=== PATIENT | male | born 1975 | race Caucasian/White ===

== ENCOUNTER 2016-11-07 20:37 | Emergency (ER) | payer BC ==
[~2016-11-07] VITALS: Ht 188 cm; Wt 122.4 kg
[2016-11-07 20:43] VITALS: TEMP 36.9; Ht 188 cm; Wt 122.4 kg
[2016-11-07] MEDS ORDERED: KETOROLAC TROMETHAMINE 30 MG/ML VIAL IV STA (21:12)
[2016-11-07] MEDS ORDERED: SODIUM CHLORIDE 0.9% 1000ML 1,000 ML IV STA (21:12)
[2016-11-07] MEDS ORDERED: ONDANSETRON 8 MG/54 ML D5W IV STA (21:12)
[2016-11-07] MEDS ORDERED: HYDROmorphone INJ 1 MG/ML SYR IV PRN (21:15)
[2016-11-07 21:27] LABS: BASO % 0.2 %; BASO ABS # 0.03 K/uL (0-0.2); COMPLETE YES; EOS % 0.3 %; HEMATOCRIT 42.4 % (42-52); IG% 0.4 %; LYMPH % 22.3 %; LYMPH ABS # 2.85 K/uL (1.2-3.4); MEAN CELL VOLUME 80.3 fL (80-100); MEAN CORPUSCULAR HEMOGLOBIN 29.2 pg (25-34); MEAN CORPUSCULAR HGB CONC 36.3 g/dl (32-36); MEAN PLATELET VOLUME 9.3 fL (7.4-10.4); MONO % 5.8 %; PLATELET COUNT 217 K/uL (130-400); RED BLOOD COUNT 5.28 M/uL (4.7-6.1)
[2016-11-07 21:47] LABS: ALT/SGPT 36 U/L (12-78); BLOOD UREA NITROGEN 14 mg/dl (7-18); BUN/CREATININE RATIO 11.8 (10-20); CALCIUM 8.8 mg/dl (8.5-10.1); CARBON DIOXIDE 27 mmol/L (21-32); CHLORIDE 105 mmol/L (98-107); GLUCOSE 112 mg/dl (70-99); POTASSIUM 3.8 mmol/L (3.5-5.1); SODIUM 141 mmol/L (136-145)
--- NOTE | 2016-11-07 21:49 | DIAGNOSTIC IMAGING REPORT ---
ABDOMEN AND PELVIS CT WITHOUT CONTRAST CT DOSE: 1936.51 mGy.cm HISTORY: Left flank pain TECHNIQUE: Multiaxial CT images of the abdomen and pelvis were performed without the use of intravenous and oral contrast according to the standard department stone protocol. COMPARISON STUDY: None. FINDINGS: There is a 3 mm stone at the left ureterovesical junction resulting in mild left hydronephrosis. No renal calculi or right-sided hydronephrosis. The lung bases are clear. The unenhanced liver, adrenal glands, pancreas, and gallbladder are unremarkable. The spleen is top normal in size. No retroperitoneal lymphadenopathy. Suboptimal evaluation for bowel pathology due to the lack of intravenous and oral contrast. However, there is no definite bowel wall thickening or obstruction. Normal appendix. Bladder is not well-distended. Colonic diverticulosis. IMPRESSION: A 3 mm obstructing stone within the left ureterovesical junction resulting in mild left hydronephrosis. Electronically signed by: Albino Bravo M.D. 11/07/2016 9:47 PM Dictated Date/Time: 11/07/2016 9:41 PM
[2016-11-07 21:50] LABS: ALKALINE PHOSPHATASE 74 U/L (45-117); AST/SGOT 21 U/L (15-37)
[2016-11-07 21:57] LABS: URINE APPEARANCE CLEAR (CLEAR); URINE BILIRUBIN NEG (NEG); URINE COLOR YELLOW; URINE NITRITE NEG (NEG); URINE SPECIFIC GRAVITY 1.025 (1.000-1.030); UROBILINOGEN NEG (NEG); ZZUR CULT IF INDIC CLEAN CATCH NO
[2016-11-07 22:10] LABS: MANUAL MICROSCOPIC REQUIRED? NO; REVIEW REQ? NO
[2016-11-07] MEDS ORDERED: HYDROmorphone INJ 0.5 MG/0.5 ML SYR IV STA (22:39)
[2016-11-07] MEDS ORDERED: PROM25TA9 PO (22:44)
[2016-11-07] MEDS ORDERED: OXYC1TAB3 PO (22:44)
[2016-11-07] MEDS ORDERED: OXYCODONE IR HOME PACK PO ONE (22:45)
[2016-11-07] MEDS ORDERED: PHENERGAN 25MG HOMEPACK PO ONE (22:45)
[2016-11-07 23:07] VITALS: BP 121/70; PULSE 60; O2SAT 98
--- NOTE | 2016-11-08 00:42 | EMERGENCY ROOM VISIT NOTE ---
History Report prepared by Laurenceibkristopher: Opal Paula Under the Supervision of: Dr. Solo Booth M.D. First contact with patient: 20:51 Chief Complaint: FLANK PAIN Stated Complaint: BACK/GROIN PAIN W/NAUSEA,POSSIBLE WC History of Present Illness The patient is a 41 year old male who presents to the Emergency Room with complaints of intermittent flank pain that started around 1800 this evening. He is accompanied by his . He reports the pain started in his groin and has since radiated into his flank, being worse on the left side. He states the pain comes in waves and rates his discomfort as anywhere from a 3/10 to a 10/10. He notes the pain was so bad when it first started that he became nauseous and vomited once. He reports his urinary frequency has also increased since the pain started. His reports the patients Mother had kidney stones surgically removed last year and experienced complications afterwards. Pt denies LOC, headache, fevers, chills, diaphoresis, visual changes, neck pain, chest pain, breathing difficulties, abdominal pain, melena, hematochezia, numbness, weakness , lymphadenopathy, rash, or other complaints. Source of History: patient Onset: 1800 this evening Position: back (left sided flank) Symptom Intensity: 3/10 to 10/10 Timing: intermittent Associated Symptoms: + nausea, + urinary symptoms, + vomiting Review of Systems See HPI for pertinent positives and negatives. A total of ten systems were reviewed and were otherwise negative. Past Medical & Surgical Medical Problems: (1) Bronchitis (2) Pneumonia Family History Diabetes mellitus Gallbladder disease Kidney stones Lung disease Social History Smoking Status: Never Smoker Alcohol Use: none Drug Use: none Marital Status: Housing Status: lives with family Occupation Status: employed Current/Historical Medications Scheduled PRN Oxycodone Ir (Roxicodone Ir), 1-2 TAB PO Q4H PRN for Pain Promethazine Hcl (Phenergan), 25 MG PO Q6H PRN for Nausea Allergies Coded Allergies: No Known Allergies (Unverified , 11/07/16) Physical Exam Vital Signs Date Time Temp Pulse Resp B/P Pulse Ox O2 Delivery O2 Flow Rate FiO2 11/07/16 23:07 60 20 121/70 98 Room Air 11/07/16 22:18 61 20 141/88 95 Room Air 11/07/16 21:49 60 11/07/16 20:43 36.9 118 18 132/82 98 Room Air Physical Exam GENERAL: Awake, alert, uncomfortable-appearing, in no distress HENT: Normocephalic, atraumatic. Oropharynx unremarkable. EYES: Normal conjunctiva. Sclera non-icteric. NECK: Supple. No nuchal rigidity. FROM. No JVD. RESPIRATORY: Clear to auscultation. CARDIAC: Regular rate, normal rhythm. Extremities warm and well perfused. Pulses equal. ABDOMEN: Soft, non-distended. No tenderness to palpation. No rebound or guarding. No masses. RECTAL: Deferred. MUSCULOSKELETAL: Chest examination reveals no tenderness. The back is symmetrical on inspection without obvious abnormality. There is no CVA tenderness to palpation. No joint edema. LOWER EXTREMITIES: Calves are equal size bilaterally and non-tender. No edema. No discoloration. NEURO: Normal sensorium. No sensory or motor deficits noted. SKIN: No rash or jaundice noted. Medical Decision & Procedures ER Provider Diagnostic Interpretation: This CT scan was reviewed and interpreted by the radiologist and reviewed by myself. ABDOMEN AND PELVIS CT WITHOUT CONTRAST CT DOSE: 1936.51 mGy.cm HISTORY: Left flank pain TECHNIQUE: Multiaxial CT images of the abdomen and pelvis were performed without the use of intravenous and oral contrast according to the standard department stone protocol. COMPARISON STUDY: None. FINDINGS: There is a 3 mm stone at the left ureterovesical junction resulting in mild left hydronephrosis. No renal calculi or right-sided hydronephrosis. The lung bases are clear. The unenhanced liver, adrenal glands, pancreas, and gallbladder are unremarkable. The spleen is top normal in size. No retroperitoneal lymphadenopathy. Suboptimal evaluation for bowel pathology due to the lack of intravenous and oral contrast. However, there is no definite bowel wall thickening or obstruction. Normal appendix. Bladder is not well-distended. Colonic diverticulosis. IMPRESSION: A 3 mm obstructing stone within the left ureterovesical junction resulting in mild left hydronephrosis. Electronically signed by: Albino Bravo M.D. 11/07/2016 9:47 PM Laboratory Results 11/07/16 21:15 Red Blood Count 5.28, Mean Corpuscular Volume 80.3, Mean Corpuscular Hemoglobin 29.2, Mean Corpuscular Hemoglobin Concent 36.3, Mean Platelet Volume 9.3, Neutrophils (%) (Auto) 71.0, Lymphocytes (%) (Auto) 22.3, Monocytes (%) (Auto) 5.8, Eosinophils (%) (Auto) 0.3, Basophils (%) (Auto) 0.2, Neutrophils # (Auto) 9.09, Lymphocytes # (Auto) 2.85, Monocytes # (Auto) 0.74, Eosinophils # (Auto) 0.04, Basophils # (Auto) 0.03 11/07/16 21:15 Test 11/07/16 21:15 11/07/16 21:20 White Blood Count 12.80 K/uL (4.8-10.8) Red Blood Count 5.28 M/uL (4.7-6.1) Hemoglobin 15.4 g/dL (14.0-18.0) Hematocrit 42.4 % (42-52) Mean Corpuscular Volume 80.3 fL (80-100) Mean Corpuscular Hemoglobin 29.2 pg (25-34) Mean Corpuscular Hemoglobin Concent 36.3 g/dl (32-36) Platelet Count 217 K/uL (130-400) Mean Platelet Volume 9.3 fL (7.4-10.4) Neutrophils (%) (Auto) 71.0 % Lymphocytes (%) (Auto) 22.3 % Monocytes (%) (Auto) 5.8 % Eosinophils (%) (Auto) 0.3 % Basophils (%) (Auto) 0.2 % Neutrophils # (Auto) 9.09 K/uL (1.4-6.5) Lymphocytes # (Auto) 2.85 K/uL (1.2-3.4) Monocytes # (Auto) 0.74 K/uL (0.11-0.59) Eosinophils # (Auto) 0.04 K/uL (0-0.5) Basophils # (Auto) 0.03 K/uL (0-0.2) RDW Standard Deviation 39.8 fL (36.4-46.3) RDW Coefficient of Variation 13.6 % (11.5-14.5) Immature Granulocyte % (Auto) 0.4 % Immature Granulocyte # (Auto) 0.05 K/uL (0.00-0.02) Anion Gap 9.0 mmol/L (3-11) Est Creatinine Clear Calc Drug Dose 111.5 ml/min Estimated GFR () 85.9 Estimated GFR (Non- 74.1 BUN/Creatinine Ratio 11.8 (10-20) Calcium Level 8.8 mg/dl (8.5-10.1) Total Bilirubin 0.4 mg/dl (0.2-1) Direct Bilirubin < 0.1 mg/dl (0-0.2) Aspartate Amino Transf (AST/SGOT) 21 U/L (15-37) Alanine Aminotransferase (ALT/SGPT) 36 U/L (12-78) Alkaline Phosphatase 74 U/L (45-117) Total Protein 7.9 gm/dl (6.4-8.2) Albumin 4.4 gm/dl (3.4-5.0) Lipase 171 U/L (73-393) Urine Color YELLOW Urine Appearance CLEAR (CLEAR) Urine pH 5.0 (4.5-7.5) Urine Specific [place] 1.025 (1.000-1.030) Urine Protein NEG (NEG) Urine Glucose (UA) NEG (NEG) Urine Ketones NEG (NEG) Urine Occult Blood 3+ (NEG) Urine Nitrite NEG (NEG) Urine Bilirubin NEG (NEG) Urine Urobilinogen NEG (NEG) Urine Leukocyte Esterase NEG (NEG) Urine WBC (Auto) 1-5 /hpf (0-5) Urine RBC (Auto) 5-10 /hpf (0-4) Urine Hyaline Casts (Auto) 1-5 /lpf (0-5) Urine Epithelial Cells (Auto) 10-20 /lpf (0-5) Urine Bacteria (Auto) NEG (NEG) Laboratory results reviewed by me Medications Administered Medications (Trade) Dose Ordered Sig/Jeffrey Route Start Time Stop Time Status Last Admin Dose Admin Hydromorphone HCl (Dilaudid Inj) 1 mg Q15M PRN IV 11/07/16 21:15 11/07/16 22:41 DC 11/07/16 21:23 1 MG Ketorolac Tromethamine (Toradol Inj) 10 mg NOW STAT IV 11/07/16 21:12 11/07/16 21:13 DC 11/07/16 21:23 10 MG Ondansetron HCl 8 mg 8 mg NOW STAT IV 11/07/16 21:12 11/07/16 21:13 DC 4/7/17 21:22 8 MG Sodium Chloride (Nss 1000ml) 1,000 ml @ 999 mls/hr Q1H1M STAT IV 11/07/16 21:12 11/07/16 22:12 DC 11/07/16 21:22 999 MLS/HR Hydromorphone HCl (Dilaudid Inj) 0.5 mg NOW STAT IV 11/07/16 22:39 11/07/16 22:41 DC 11/07/16 23:03 0.5 MG Oxycodone HCl (Roxicodone Immediate Rel 5MG Home Pack) 1 homepack UD ONCE PO 11/07/16 22:45 11/07/16 22:46 DC 11/07/16 23:03 1 HOMEPACK Promethazine HCl (Phenergan 25MG Home Pack) 1 homepack UD ONCE PO 11/07/16 22:45 11/07/16 22:46 DC 11/07/16 23:03 1 HOMEPACK ED Course 2109: The patient was evaluated in room A10. A complete history and physical exam was performed. 2111: NSS 1000 ml @ 999 mls/hr IV, Zofran 8 mg IV, Toradol 10 mg IV. 2114: Dilaudid 1 mg IV. 2154: I reevaluated the patient. He is feeling better. 2234: I reevaluated the patient. He is still in some pain but feels ready to go home. I will place more medication orders. I discussed his results and discharge instructions and he verbalized complete understanding and agreement. 2238: Dilaudid 0.5 mg IV. 5: Promethazine HCl 25 mg 1 home pack PO, Oxycodone HCl 5 mg 1 homepack PO. Medical Decision Prior records/ancillary studies reviewed. Triage Nursing notes reviewed and agree them. Additional history obtained from the family. The patient's history was concerning for flank and abdominal pain. Differential diagnosis: Etiologies such as renal colic, appendicitis, diverticulitis, mesenteric ischemia, aortic pathology, infections, inflammatory bowel disease, PUD, biliary pathology, UTI, as well as others were entertained. Physical examination findings: As above. ER treatment provided: IV Toradol IV normal saline and IV Zofran IV Dilaudid 1 mg. On reassessment the patient felt much better. The patient had some slight increase in pain prior to discharge was given a second dose of IV Dilaudid but only 0.5 mg. Diagnostic interpretation by me: The labs revealed slight leukocytosis on CBC. Chemistry panel LFTs and lipase are unremarkable. Urinalysis revealed hematuria. There was no sign of UTI. Imaging studies: CT of the abdomen and pelvis as above. It appears that the patient has isolated renal colic from a left sided stone. He is doing very well at this time. Conservative management was discussed. He worsens in any way he will be back. By the evaluation outlined above emergent etiologies such as appendicitis, diverticulitis, mesenteric ischemia, aortic pathology, infections, inflammatory bowel disease, PUD, biliary pathology, UTI, as well as others were deemed relatively unlikely. The the patient and were informed about the findings as listed above. All questions were answered and they were pleased with the treatment. Return instructions were outlined and the patient was discharged in stable condition. Outpatient prescription management: Oxy IR 5mg 1-2 po Q4 hrs prn Phenergan Referral: The pt was referred to [facility] for follow up care regarding their stone. The chart was completed utilizing [employer] Speech voice recognition software. Grammatical errors, random word insertions, pronoun errors, and incomplete sentences are an occasional consequence of this system due to software limitations, ambient noise, and hardware issues. Any formal questions or concerns about the content, text, or information contained within the body of this dictation should be directly addressed to the physician for clarification. [place] Drug Monitoring Program Search Results: patient reviewed within database, no issues identified Impression Primary Impression: Kidney stone Additional Impression: Renal colic Scribe Attestation The scribe's documentation has been prepared under my direction and personally reviewed by me in its entirety. I confirm that the note above accurately reflects all work, treatment, procedures, and medical decision making performed by me. Departure Information Dispostion Home / Self-Care Prescriptions Oxycodone Ir (Roxicodone Ir) 5 Mg Tab 1-2 TAB PO Q4H Y for Pain, #15 TAB Prov: Solo Booth MD 11/07/16 Promethazine Hcl (Phenergan) 25 Mg Tab 25 MG PO Q6H Y for Nausea, #10 TAB Prov: Solo Booth MD 11/07/16 Referrals Dante De La Rosa M.D. (PCP) Patient Instructions My [facility] Additional Instructions KIDNEY STONE INSTRUCTIONS: Oxycodone Immediate Release (OxyIR) 5mg: Take 1-2 pills every four hours for pain. Avoid alcohol, operating machinery or dangerous equipment, working on ladders or roofs, DRIVING, or situations where being under the influence may be dangerous. It is recommended to use an [id number] stool softener such as Colace, 100mg twice daily while taking this medication to avoid constipation. Phenergan 25mg: Take one every six hours as needed for nausea. Avoid alcohol, operating machinery or dangerous equipment, working on ladders or roofs, DRIVING , or situations where being under the influence may be dangerous. Ibuprofen(Motrin, Advil) may be used for fever or pain. Use 600mg every six hours as needed. Take with food. Avoid using more than 2400mg in a 24 hour period. Do not use 2400mg per day for more than three consecutive days without physician direction. Prolonged inappropriate use can lead to stomach upset or ulcers. This medication can be taken if you need to drive, work, or perform activities which may be dangerous when taking narcotic pain medication. (AND/OR) Acetaminophen(Tylenol) may be used for fever or pain. Use 1000mg every six hours as needed. Avoid using more than 4000mg in a 24 hour period. This medication can be taken if you need to drive, work, or perform activities which may be dangerous when taking narcotic pain medication. Strain your urine and collect all the stones or debris for the urologists. Rest and avoid strenuous activity until your stone passes and symptoms resolve. Drink plenty of fluids. Return to the ER for worsening abdominal or back pain, vomiting, fevers, passing out, or as needed. Follow up with [facility] Thursday, [phone], to arrange a visit. Problem Qualifiers
== END 2016-11-07 23:08 | disposition home or self-care (01) ==
LOC: C.EDB 20:39 → C.EDA 23:08
DX: N20.1 Calculus of ureter (principal); N13.1 Hydronephrosis with ureteral stricture, not elsewhere classified